=== PATIENT | male | born 1980 | race Caucasian/White ===

== ENCOUNTER 2017-01-03 11:31 | Emergency (ER) | payer MEDICAID, OTHER ==
[~2017-01-03] VITALS: Ht 167.6 cm; Wt 70.0 kg
[2017-01-03 11:40] VITALS: Ht 167.6 cm; Wt 70.0 kg
[2017-01-03] MEDS ORDERED: KETOROLAC 30 MG INJ IM STA (12:28)
--- NOTE | 2017-01-03 12:33 | ERD ---
ER Documentation Chief Complaint Date/Time DATE: 01/03/17 TIME: 12:32 Chief Complaint RIGHT SHOULDER PAIN SINCE YESTERDAY HPI This is a 36-year-old male who presents the emergency department today complaining of right shoulder and shoulder blade pain with movement. Patient states that yesterday he was moving furniture when he went to lift the furniture and fell down on top of his arm. He is not taking any medication for the pain. Denies any previous trauma, fevers or chills ROS All systems reviewed and are negative except as per history of present illness. Medications Home Meds Active Scripts Hydrocodone/Acetaminophen ([place] 5-325 Tablet) 1 Each Tablet, 1 TAB PO Q6H Y for PAIN, #10 TAB Prov:KALANI GRANADOS PA-C 01/03/17 Naproxen* (Naprosyn*) 500 Mg Tablet, 500 MG PO BID Y for PAIN AND/OR INFLAMMATION, #30 TAB Prov:KALANI GRANADOS PA-C 01/03/17 Physical Exam Vitals Vital Signs Date Time Temp Pulse Resp B/P Pulse Ox O2 Delivery O2 Flow Rate FiO2 01/03/17 11:40 98.2 84 18 160/96 98 Physical Exam Const: No acute distress Head: Atraumatic Eyes: Normal Conjunctiva ENT: Normal External Ears, Nose and Mouth. Neck: Full range of motion..~ No meningismus. Resp: Clear to auscultation bilaterally Cardio: Regular rate and rhythm, no murmurs Skin: No petechiae or rashes Back: No midline or flank tenderness Ext: Right shoulder and arm with no obvious deformity. No effusion. No ecchymosis. Mild area of redness over the anteromedial aspect of bicep. Full active range of motion of shoulder with pain. Pulses 2+. Distal neurovascularly intact. Neur: Awake and alert Psych: Normal Mood and Affect Results 24 hrs Current Medications Medications (Trade) Dose Ordered Sig/[place] Route PRN Reason Start Time Stop Time Status Last Admin Dose Admin Ketorolac Tromethamine (Toradol) 30 mg ONCE STAT IM 01/03/17 12:28 01/03/17 12:32 DC 01/03/17 12:43 DIAGNOSTIC IMAGING REPORT Patient: MAG FAIRBANKS : 1980 Age: 36 Sex: M MR #: [id number] DOS: 01/03/17 0000 Ordering MD: KALANI GRANADOS PA-C Location: [facility] Room/Bed: PROCEDURE: Right Scapula Series CLINICAL INDICATION: Trauma and pain. TECHNIQUE: 2 views. COMPARISON: None FINDINGS: No fractures are noted. No lesions are noted. The soft tissues are unremarkable. IMPRESSION: 1. No bony abnormalities are identified. RPTAT: HGSG .Marc Jackson MD, MD Date Time Electronically viewed and signed by .Marc Jackson MD, MD on 01/03/2017 13: 28 .G/ CC: KALANI GRANADOS PA-C DIAGNOSTIC IMAGING REPORT Patient: MAG FAIRBANKS : 1980 Age: 36 Sex: M MR #: [id number] DOS: 01/03/17 0000 Ordering MD: KALANI GRANADOS PA-C Location: [facility] Room/Bed: PROCEDURE: Right shoulder series CLINICAL INDICATION: Trauma and pain. TECHNIQUE: 2 views. COMPARISON: None FINDINGS: No fractures are noted. No dislocations are noted. No significant degenerative changes are noted. The glenohumeral joint space is well maintained. No erosions are noted. The soft tissues are unremarkable. IMPRESSION: 1. No bony abnormalities are identified. RPTAT: HGSG .Marc Jackson MD, MD Date Time Electronically viewed and signed by .Marc Jackson MD, MD on 01/03/2017 13: 28 .G/ CC: KALANI GRANADOS PA-C Procedures/MDM This a 36-year-old male who presents the emergency department today complaining of right shoulder and scapular pain after dropping furniture on top of himself yesterday. Given patient's trauma and complaints I did obtain images. Per the radiology report images of the right shoulder and right scapula show no bony abnormalities. There is no acute fracture dislocation. Glenohumeral joint space is well-maintained. Soft tissues are unremarkable. Patient symptoms at this time is consistent with sprain versus strain versus contusion secondary to trauma. Patient was driving himself here to the emergency department. He was given Toradol. He will be given a prescription for short course of [place], Naprosyn for home. Patient declined a sling. At this time the patient is stable for discharge and outpatient management. Patient should follow up with their PCP in the next 1-2 days. They may return to the emergency department sooner for any persistent or worsening of symptoms. Patient understood and agreed with the plan. Departure Diagnosis: Primary Impression: Shoulder injury Encounter type: initial encounter Laterality: right Qualified Code: S49.91XA - Shoulder injury, right, initial encounter Condition: Fair KALANI GRANADOS PA-C Jan 03, 2017 12:33
--- NOTE | 2017-01-03 13:28 | RADRPT ---
PROCEDURE: Right Scapula Series CLINICAL INDICATION: Trauma and pain. TECHNIQUE: 2 views. COMPARISON: None FINDINGS: No fractures are noted. No lesions are noted. The soft tissues are unremarkable. IMPRESSION: 1. No bony abnormalities are identified. RPTAT: HGSG .Marc Jackson MD, MD Date Time Electronically viewed and signed by .Marc Jackson MD, on 01/03/2017 13:28 .G/
--- NOTE | 2017-01-03 13:28 | RADRPT ---
PROCEDURE: Right shoulder series CLINICAL INDICATION: Trauma and pain. TECHNIQUE: 2 views. COMPARISON: None FINDINGS: No fractures are noted. No dislocations are noted. No significant degenerative changes are noted. The glenohumeral joint space is well maintained. No erosions are noted. The soft tissues are unremarkable. IMPRESSION: 1. No bony abnormalities are identified. RPTAT: HGSG .Marc Jackson MD, MD Date Time Electronically viewed and signed by .Marc Jackson MD, on 01/03/2017 13:28 .G/
[2017-01-03] MEDS ORDERED: NAPR-260 PO (14:06)
[2017-01-03] MEDS ORDERED: HYDR-906 PO (14:06)
== END 2017-01-03 15:09 | disposition home or self-care (01) ==
LOC: FTE 11:31
DX: S49.91XA Unspecified injury of right shoulder and upper arm, initial encounter (principal); W20.8XXA Other cause of strike by thrown, projected or falling object, initial encounter; Y92.9 Unspecified place or not applicable
CPT/HCPCS: 73010; 73030; 96372; J1885; Z7502

== ENCOUNTER 2018-01-05 02:56 | Emergency (ER) | END 2018-01-05 05:14 | disposition home or self-care (01) ==

== ENCOUNTER 2018-02-13 16:48 | Emergency (ER) | END 2018-02-13 17:25 | disposition home or self-care (01) ==

== ENCOUNTER 2018-03-23 20:48 | Emergency (ER) | END 2018-03-24 01:18 | disposition home or self-care (01) ==

== ENCOUNTER 2018-09-23 05:53 | Emergency (ER) | payer MEDICAID ==
[~2018-09-23] VITALS: Ht 167.6 cm; Wt 70.4 kg
[~2018-09-23 05:53] MED LIST: ABCC1C PO; ALBU18HF INHALATION; AZIT250T PO; BENZ200C68 PO; CYCL10TA7 PO; HYDR-4011 PO; NAPR-985 PO; ONDA4TAB14 PO; PRED20TA PO
[2018-09-23 06:03] VITALS: Ht 167.6 cm; Wt 70.4 kg
--- NOTE | 2018-09-23 07:46 | ERD ---
ER Documentation Chief Complaint Chief Complaint midsternal CP since 3 hrs ago w/N&V; hx HTN on meds HPI 38-year-old male presents the emergency department complaining of chest pain. Patient was in his usual state of health until about 3 hours ago which time he awoke feeling dizzy. He then felt slightly nauseous associated with the dizziness. The dizziness was nonspecific and non-vertiginous. It was associated with no headache, focal weakness or numbness. The nausea that he had was associated with no abdominal pain. Patient then began developing a nonspecific chest discomfort and came to the emergency department for eval uation. The chest discomfort is nonspecific in nature, mild to moderate, nonexertional. ROS All systems reviewed and are negative except as per history of present illness. Medications Home Meds Active Scripts Naproxen* (Naprosyn*) 500 Mg Tablet, 500 MG PO BID PRN for PAIN AND/OR INFLAMMATION, #30 TAB Prov:VEGA ERNANDEZ PA-C 03/24/18 Cyclobenzaprine Hcl* (Cyclobenzaprine Hcl*) 10 Mg Tablet, 10 MG PO TID, #15 TAB Prov:VEGA ERNANDEZ PA-C 03/24/18 Albuterol Sulfate* (Ventolin HFA*) 18 Gm Hfa.aer.ad, 2 PUFF INHALATION Q4H, #1 INHALER Prov:TORI MCGRAW PA-C 02/13/18 Benzonatate* (Benzonatate*) 200 Mg Capsule, 200 MG PO TID PRN for COUGH, #15 CAP Prov:TORI MCGRAW PA-C 02/13/18 Azithromycin* (Zithromax*) 250 Mg Tablet, 250 MG PO .ZPACK DIRECTED, #6 TAB TAKE 500 MG (2 TABS) THE FIRST DAY THEN 250 MG (1 TAB) DAYS 2-5 Prov:TORI MCGRAW PA-C 02/13/18 Prednisone* (Prednisone*) 20 Mg Tab, 40 MG PO DAILY for 4 Days, #8 TAB Prov:TORI MCGRAW PA-C 02/13/18 Ondansetron (Ondansetron Odt) 4 Mg Tab.rapdis, 4 MG PO Q6H PRN for NAUSEA AND/OR VOMITING, #20 TAB Prov:DARIUS BOATENG T. ACCOUNTING ADVISORY SERVICES MANAGER 01/05/18 Ewipexcdkibic-Ocwybncixm-Sgwlapkm-Codeine* (Fioricet w/Codeine*) [id number]-30MG Cap, 1 CAP PO Q4H PRN for PAIN LEVEL 1-5, #20 CAP Prov:ROM[employer] ACCOUNTING ADVISORY SERVICES MANAGER 01/05/18 Hydrocodone/Acetaminophen ([place] 5-325 Tablet) 1 Each Tablet, 1 TAB PO Q6H PRN for PAIN, #10 TAB Prov:KALANI GRANADOS PA-C 01/03/17 Naproxen* (Naprosyn*) 500 Mg Tablet, 500 MG PO BID PRN for PAIN AND/OR INFLAMMATION, #30 TAB Prov:KALANI GRANADOS PA-C 01/03/17 Allergies Allergies: Coded Allergies: No Known Allergy (Unverified , 01/05/18) PMhx/Soc Hx Respiratory Disorders: Yes (asthma, bronchitis) Hx Cardiac Disorders: Yes (hypertension; high cholesterol) Hx Alcohol Use: Yes (3 beers last week) Hx Substance Use: No Hx Tobacco Use: No Smoking Status: Never smoker FmHx Positive family history of heart disease Physical Exam Vitals Vital Signs Date Temp Pulse Resp B/P (MAP) Pulse Ox O2 O2 Flow FiO2 Time Delivery Rate 09/23/18 61 18 121/92 100 Nasal 07:11 (102) Cannula 09/23/18 Nasal 2 06:40 Cannula 09/23/18 97.5 73 20 140/100 99 06:03 (113) Physical Exam GENERAL: The patient is well developed and appropriate for usual state of health in no apparent distress HEENT: Pupils equal, round, and reactive to light. EOMI. There is no scleral icterus. NECK: C-spine is soft and supple, there is no meningismus. There is no cervical lymphadenopathy. LUNGS: Clear to auscultation bilaterally. There are no rales, wheezes or rhonchi. HEART: Regular rate and rhythm, no murmurs, clicks, rubs or gallops. ABDOMEN: Soft, non-tender, non-distended. There are bowel sounds in all four quadrants. No rebound or guarding. EXTREMITIES: There is no peripheral cyanosis or edema. No focal swelling or erythema. NEURO: The patient moves all four extremities with 5/5 strength. Cranial nerves II - XII are intact. Normal gait. Alert and oriented SKIN: There is no apparent rash or petechiae. HEME/LYMPHATIC: There is no evidence of excessive bruising or lymphedema. PSYCHIATRIC: The patient does not appear anxious or depressed. Result Diagram: 09/23/18 0644 09/23/18 0644 Results 24 hrs Laboratory Tests Test 09/23/18 06:44 White Blood Count 7.0 10^3/ul Red Blood Count 5.83 10^6/ul Hemoglobin 17.3 g/dl Hematocrit 50.1 % Mean Corpuscular Volume 85.9 fl Mean Corpuscular Hemoglobin 29.7 pg Mean Corpuscular Hemoglobin Concent 34.5 g/dl Red Cell Distribution Width 11.8 % Platelet Count 280 10^3/UL Mean Platelet Volume 9.6 fl Immature Granulocytes % 0.600 % Neutrophils % 65.6 % Lymphocytes % 23.7 % Monocytes % 7.2 % Eosinophils % 2.0 % Basophils % 0.9 % Nucleated Red Blood Cells % 0.0 /100WBC Immature Granulocytes # 0.040 10^3/ul Neutrophils # 4.6 10^3/ul Lymphocytes # 1.7 10^3/ul Monocytes # 0.5 10^3/ul Eosinophils # 0.1 10^3/ul Basophils # 0.1 10^3/ul Nucleated Red Blood Cells # 0.0 10^3/ul Sodium Level 144 mmol/L Potassium Level 4.5 mmol/L Chloride Level 105 mmol/L Carbon Dioxide Level 30 mmol/L Anion Gap 9 Blood Urea Nitrogen 17 mg/dl Creatinine 0.96 mg/dl Est Glomerular Filtrat Rate mL/min > 60 mL/min Glucose Level 113 mg/dl Calcium Level 10.2 mg/dl Total Bilirubin 0.5 mg/dl Direct Bilirubin 0.00 mg/dl Indirect Bilirubin 0.5 mg/dl Aspartate Amino Transf (AST/SGOT) 31 IU/L Alanine Aminotransferase (ALT/SGPT) 25 IU/L Alkaline Phosphatase 134 IU/L Troponin I < 0.012 ng/ml Total Protein 7.9 g/dl Albumin 4.8 g/dl Globulin 3.10 g/dl Albumin/Globulin Ratio 1.54 Lipase 134 U/L Procedures/MDM Patient was taken to a room, seen and evaluated. Comfort measures were initiated. Diagnostic tests were ordered and reviewed. 3 LEAD RHYTHM STRIP: Normal sinus rhythm without ectopy EK lead EKG reviewed by myself: Normal Sinus Rhythm Normal [place] and intervals No ST elevation, depression, or T wave inversion Impression: Normal EKG Repeat EKG interpreted by myself: 12 lead EKG reviewed by myself: Normal Sinus Rhythm Normal [place] and intervals No ST elevation, depression, or T wave inversion Impression: Normal EKG RADIOLOGY: Reviewed with the radiologist REEVALUATION: 0745: Diagnostic tests were appreciated and discussed with the patient. Patient was offered serial troponins and observation which he declined. He stated he had complete resolution of his discomfort. MEDICAL DECISION MAKING: Patient presents with chest pain of uncertain etiology. Differential diagnosis considered includes acute myocardial infarction, pulmonary embolism, as well as vascular and pulmonary concerns. I have reviewed the patients clinical risk factors, EKG, lab studies and imaging. Patient does have some risk factors including a family history, history of hypertension and cholesterol. However, his EKG is normal and his troponin is negative all of which makes him slightly less risk. He has been offered observation for serial delta troponins which he has declined. At this time, his cardiac risk is low and he feels comfortable following up as an outpatient. She shows no further evidence of other concerns including no evidence of pulmonary embolism, thoracic issues or other issues. Departure Diagnosis: Primary Impression: Chest pain Condition: Stable Patient Instructions: Chest Pain, Uncertain Cause Additional Instructions: See your doctor for follow-up as discussed. Take a copy of your test results, if appropriate, to this follow-up visit. See your doctor or return here if your symptoms do not improve as expected. At any time, please return to the emergency department for any change or worsening in her symptoms. HARRY ACOSTA Sep 23, 2018 07:46
[2018-09-23 07:53] VITALS: BP 125/89; PULSE 65; RESP 19
== END 2018-09-23 07:54 | disposition home or self-care (01) ==
LOC: E/R 05:53
DX: R07.9 Chest pain, unspecified (principal); I10 Essential (primary) hypertension; J45.909 Unspecified asthma, uncomplicated
CPT/HCPCS: 36415; 71045; 80053; 83690; 84484; 85025; 93005; Z7502

== ENCOUNTER 2019-04-05 04:22 | Emergency (ER) | payer MEDICAID ==
[~2019-04-05] VITALS: Ht 167.6 cm; Wt 70.9 kg
[~2019-04-05 04:22] MED LIST changes: +HYDR-843 PO
[2019-04-05 04:25] VITALS: BP 157/82; PULSE 75; RESP 22; Ht 167.6 cm; Wt 70.9 kg
[2019-04-05] MEDS ORDERED: ONDANSETRON (ODT) 4 MG TAB ODT STA (05:09)
[2019-04-05] MEDS ORDERED: ASPIRIN 81 MG TAB PO ONE (05:30)
== END 2019-04-05 06:20 | disposition home or self-care (01) ==
LOC: FTE 04:22
DX: F41.9 Anxiety disorder, unspecified (principal); I10 Essential (primary) hypertension; J45.909 Unspecified asthma, uncomplicated
CPT/HCPCS: 71046; 84484; 93005; Z7502; Z7610